=== PATIENT | female | born 1955 | race Caucasian/White ===

== ENCOUNTER 2017-08-04 09:00 | Emergency (ER) | payer SELFPAY ==
--- NOTE | 2017-08-04 12:32 | Emergency Department Report ---
ED General Adult HPI - General Chief complaint: Medical Clearance Stated complaint: EYES BURNING Source: patient Mode of arrival: Ambulatory Limitations: No Limitations - History of Present Illness Initial comments: 62 y/o F with a PMHX of DM, cataracts, and glaucoma presents with blurried vision for the past few days, as she has not been taking her glaucoma medicine since she [place] [facility] [place]. Dx with galucoma over 2 years ago. Pt was on latanoprost and timolol Pt states that when she does not take this medication she gets these symptoms. Pt denies any loss of balance, chest pain, SOB, weakness, coordination issues, or other neurological issues, she denies loss of vision/just blurriness; no numbness or tingling. Pt denies any hx of stroke, redness/ drainage from the eye, nausea/vomiting, or headache. She also denies any SOB or weakness. Pt admits to a cataract surgery of the left eye one year ago. NKDA. - Related Data Previous Rx's Medication Instructions Recorded Last Taken Type Latanoprost 0.005% [Xalatan 0.005%] 1 drop OP QPM #1 bottle 08/04/17 Unknown Rx Timolol Maleate [Timoptic 0.5%] 1 drop OP QDAY #1 bottle 08/04/17 Unknown Rx Allergies Allergy/AdvReac Type Severity Reaction Status Date / Time No Known Allergies Allergy Unverified 08/04/17 13:02 ED Review of Systems ROS: Stated complaint: EYES BURNING Other details as noted in HPI Constitutional: denies: chills, fever Eyes: eye pain, other (reports to blurried vision, whenever she does not take her glaucoma medication, she denies any redness, oozing, or drainage from the eyes b/l). denies: eye discharge, vision change ENT: denies: ear pain, throat pain Respiratory: denies: cough, shortness of breath, wheezing Cardiovascular: denies: chest pain, palpitations Genitourinary: denies: urgency, dysuria, discharge Musculoskeletal: denies: back pain, joint swelling, arthralgia Skin: denies: rash, lesions Neurological: denies: headache, weakness, paresthesias Psychiatric: denies: anxiety, depression ED Past Medical Hx - Past Medical History Hx Diabetes: Yes Additional medical history: EYE PROBLEMS - Surgical History Additional Surgical History: GLAUCOMA - Social History Smoking Status: Never Smoker Substance Use Type: None - Medications Home Medications: Home Medications Medication Instructions Recorded Confirmed Last Taken Type Latanoprost 0.005% [Xalatan 0.005%] 1 drop OP QPM #1 bottle 08/04/17 Unknown Rx Timolol Maleate [Timoptic 0.5%] 1 drop OP QDAY #1 bottle 08/04/17 Unknown Rx ED Physical Exam - General Limitations: No Limitations General appearance: alert - Head Head exam: Present: atraumatic, normocephalic - Eye Eye exam: Present: normal appearance, PERRL, EOMI. Absent: nystagmus, periorbital swelling, periorbital tenderness Pupils: Present: normal accommodation - Expanded Eye Exam Expanded Eyelids: Normal Inspection: Right (normal eyelids b/l) Pupils: Regular, Round: Bilateral, Reactive: Bilateral Sclera/Conjunctival: Normal Inspection: Bilateral - ENT ENT exam: Present: normal exam - Neck Neck exam: Present: normal inspection - Respiratory Respiratory exam: Present: normal lung sounds bilaterally - Cardiovascular Cardiovascular Exam: Present: regular rate, normal rhythm - GI/Abdominal GI/Abdominal exam: Present: soft, normal bowel sounds - Extremities Exam Extremities exam: Present: normal inspection - Neurological Exam Neurological exam: Present: alert, oriented X3, CN II-XII intact, normal gait, other (normal sensation, pulses, and balance) - Expanded Neurological Exam Expanded Patient oriented to: Present: person, place, time Speech: Present: fluid speech Cranial nerves: EOM's Intact: Normal, Facial Sensation: Normal Cerebellar function: Finger to Nose: Normal, Heel to Neff: Normal Sensory exam: Upper Extremity Light Touch: Normal, Upper Extremity Pin Prick: Normal, Lower Extremity Light Touch: Normal, Lower Extremity Pin Prick: Normal Motor strength exam: RUE: 5, LUE: 5, RLE: 5, LLE: 5 DTR: knee (R): 2+, knee (L): 2+ Best Eye Response (Arnaud): (4) open spontaneously Best Motor Response (Arnaud): (6) obeys commands Best Verbal Response (Arnaud): (5) oriented Arnaud Total: 15 - Psychiatric Psychiatric exam: Present: normal affect, normal mood - Skin Skin exam: Present: warm, dry, intact, normal color. Absent: rash ED Course Vital Signs 08/04/17 08/04/17 09:10 13:02 Temperature 97.4 F L 97.9 F Pulse Rate 77 72 Respiratory 18 18 Rate Blood Pressure 168/81 Blood Pressure 164/75 [Left] O2 Sat by Pulse 100 100 Oximetry ED Medical Decision Making - Medical Decision Making Pt was requesting glaucoma medication as she had left her medicine back [place] [facility] [place]. Pt states that she gets such blurried vision when she does not take her glaucoma medicine- no acute or new changes were reported. Pt's blood sugar today was 284, she has not taken her insulin at home today. EOMI and PERRLA, pupils were reactive to light bilaterally. Pt was educated on the importance of taking her insulin always, no neurological deficits on examine, sensation and pulses were full. Spoke with DR. Michaels and he is okay to discharge her with the stats at discharge. I will provide patient with a referral to a PCP here in this area and an eye doctor referral for continued management and care. Pt reports understanding to follow-up. Pt was discharged in stable condition, she was hemodynamically and neurovascularly intact and stable. She was alert and oriented and in no acute respiratory distress. Critical care attestation.: If time is entered above; I have spent that time in minutes in the direct care of this critically ill patient, excluding procedure time. ED Disposition Clinical Impression: Glaucoma Qualifiers: Glaucoma type: unspecified Laterality: bilateral Qualified Code(s): H40.9 - Unspecified glaucoma Diabetes Qualifiers: Diabetes mellitus type: type 2 Diabetes mellitus complication status: without complication Diabetes mellitus intermediate school teacher insulin use: unspecified snf insulin use status Qualified Code(s): E11.9 - Type 2 diabetes mellitus without complications Disposition: DC-01 TO HOME OR SELFCARE Is pt being admited?: No Does the pt Need Aspirin: No Condition: Stable Instructions: Glaucoma (ED), Diabetes Mellitus Type 2 in Adults (ED) Additional Instructions: Please place the glaucoma drops as directed on the bottle. It is very important that you are complaint with your insulin for DM. Please take as instructed by your doctor at home. I have provided you with a referral to Dr. Michaels for your eyes please follow-up within 3-5 days. A referral to a primary has also been provided please follow-up within 3-5 days to further evaluate you diabetes. Pt explained to return to the ED with any acute worsening such as chest pain, SOB, numbness. Prescriptions: Latanoprost 0.005% [Xalatan 0.005%] 1 drop OP QPM #1 bottle Timolol Maleate [Timoptic 0.5%] 1 drop OP QDAY #1 bottle Referrals: PRIMARY CARE, [Primary Care Provider] - 3-5 Days BHAVESH MICHAELS MD [Staff Physician] - 3-5 Days [facility] [Outside] - 3-5 Days [facility] [Outside] - 3-5 Days Forms: Accompanied Note, Work/School Release Form(ED)
[2017-08-04 13:03] VITALS: BP 164/75
== END 2017-08-04 13:31 | disposition home or self-care (01) ==
LOC: ED 09:00
DX: H40.9 Unspecified glaucoma (principal); E11.9 Type 2 diabetes mellitus without complications
CPT/HCPCS: 82962; 99282